=== PATIENT | male | born 1955 | race Caucasian/White ===

== ENCOUNTER → 2023-04-06 10:08 | Outpatient (CLI) | payer MEDICARE, OTHER, SELFPAY ==
--- NOTE | 2023-04-06 | DI.NM.S_ITS ---
PROCEDURE: NM GLENYS PERF SPECT REST & STR Rest and exercise myocardial perfusion SPECT with gated imaging and ejection fraction RADIOPHARMACEUTICAL: 25.7 mCi Tc-99m sestamibi IV at rest and 24.6 mCi Tc-99m sestamibi IV at peak exercise. A two day-protocol was performed. INDICATIONS: Atrioventricular block, first degree TECHNIQUE: Radiopharmaceutical was injected at peak stress test, and also at rest. SPECT images were obtained. SPECT myocardial perfusion images were displayed in short axis, horizontal long axis, and vertical long axis views. Gated images were reviewed using [employer] software. COMPARISON: None. CARDIAC STRESS: A standard Clement treadmill exercise tolerance test was performed by the patient under the supervision of an attending staff. The patient exercised for 12 minutes and 1 seconds; functional aerobic impairment (TAMARA) is -54%. Hemodynamic data: There is normal blood pressure and heart rate response to exercise stress. Patient achieved 94% of maximum predicted heart rate at peak exercise. Symptoms: Patient denied chest pain during exercise. EKG: No diagnostic EKG changes of ischemia; no ectopy. FINDINGS: Raw data: There is good myocardial labeling by radiotracer. No significant motion artifacts. Trvx-yv-zremh ratio is 0.18 (normal is less than 0.38 for sestamibi tracer, and less than 0.50 for thallium tracer). Left ventricle function: Gated images demonstrate normal left ventricle wall thickening. No segmental wall motion abnormality. No transient ischemic dilation; TID is 1.95 (normal less than 1.3). The left ventricle resting end-diastolic volume is 137 mL. Left ventricle stress ejection fraction is 63%; normal values are above 45%. Myocardial perfusion: There is normal distribution of activity in the left and right ventricular myocardium. No fixed or reversible perfusion defects. IMPRESSION: Low risk, normal treadmill nuclear stress testB 1) No perfusion evidence of ischemia or infarction. 2) Normal left ventricular size, wall motion, and sysotlic function (EF post stress 63%). 3) No ST changes with exercise or during recovery. 4) No angina during the study. 5) Excellent exercise tolerance (12.8METs, TAMARA -54%). Target heart rate achieved. Appropriate BP response to exercise. 6) No prior nuclear stress test available for comparison. Dictated by: Nathalia Murphy MD on 04/07/2023 at 12:52 Approved by: Nathalia Murphy MD on 04/07/2023 at 12:55
== END ==
PROVIDERS: PCP Physician Assistant; Referring Provider Physician Assistant; Visit Provider Physician Assistant
DX: I44.0 Atrioventricular block, first degree (principal)
CPT/HCPCS: 78452; 93017; A9502